=== PATIENT | female | born 1965 | race American Indian/Alaskan Native ===

== ENCOUNTER 2021-07-31 07:24 | Emergency (ER) | payer OTHER ==
[2021-07-31 07:36] VITALS: BP 141/62; PULSE 78; TEMP 98; BMI 21.1
== END 2021-07-31 09:40 | disposition home or self-care (01) ==
LOC: JER 07:24
DX: S39.012A Strain of muscle, fascia and tendon of lower back, initial encounter (principal); V43.62XA Car passenger injured in collision with other type car in traffic accident, initial encounter
CPT/HCPCS: 99281-25